=== PATIENT | female | born 1990 | race Caucasian/White ===

== ENCOUNTER 2017-08-18 19:05 | Emergency (ER) | payer SELFPAY ==
[~2017-08-18] VITALS: Ht 154.9 cm; Wt 54.5 kg
[2017-08-18] MEDS ORDERED: KETOROLAC TROMETHAMINE 30 MG/ML VIAL IVP ONE (20:15)
[2017-08-18] MEDS ORDERED: DiphenhydrAMINE HCL 50 MG/ML VIAL IVP ONE (20:15)
[2017-08-18] MEDS ORDERED: ONDANSETRON HCL 4 MG/2 ML VIAL IVP ONE (20:15)
[2017-08-18] MEDS ORDERED: SODIUM CHLORIDE 0.9% 1,000 ML IV ONE (20:15)
[2017-08-18 21:38] VITALS: BP 100/58
== END 2017-08-18 21:53 | disposition home or self-care (01) ==
LOC: EMS 19:07
DX: G43.909 Migraine, unspecified, not intractable, without status migrainosus (principal); F17.210 Nicotine dependence, cigarettes, uncomplicated
CPT/HCPCS: 96361; 96374; 96375; 99284; J1200; J1885; J2405; J7030

== ENCOUNTER 2017-09-03 16:53 | Emergency (ER) | payer SELFPAY ==
[~2017-09-03] VITALS: Ht 154.9 cm; Wt 56.8 kg
[2017-09-03] MEDS ORDERED: KETOROLAC TROMETHAMINE 30 MG/ML VIAL IM ONE (18:00)
[2017-09-03] MEDS ORDERED: ONDANSETRON HCL 4 MG TABLET PO ONE (18:00)
[2017-09-03 18:40] LABS: INFLUENZA TYPE A NEGATIVE FOR TYPE A (NEGATIVE); INFLUENZA TYPE B NEGATIVE FOR TYPE B (NEGATIVE)
[2017-09-03 19:24] VITALS: BP 108/67
== END 2017-09-03 19:28 | disposition home or self-care (01) ==
LOC: EMS 16:53
DX: J11.1 Influenza due to unidentified influenza virus with other respiratory manifestations (principal); F17.210 Nicotine dependence, cigarettes, uncomplicated
CPT/HCPCS: 87804; 96372; 99284; J1885; Q0162

== ENCOUNTER 2017-09-08 07:46 | Emergency (ER) | payer MEDICAID ==
[~2017-09-08] VITALS: Ht 165.1 cm; Wt 54.5 kg
[2017-09-08 09:42] LABS: GLUCOSE,POINT OF CARE 110 MG/DL (70-110)
[2017-09-08 10:03] LABS: APPEARANCE,URINE CLEAR (CLEAR); BILIRUBIN,URINE NEGATIVE (NEGATIVE); GLUCOSE, URINE (UA) NEGATIVE (NEGATIVE); KETONES,URINE NEGATIVE (NEGATIVE); LEUKOCYTE ESTERASE ,URINE NEGATIVE (NEGATIVE); NITRATE,URINE NEGATIVE (NEGATIVE); PH,URINE 5.5 (5.0-8.0); PROTEIN,URINE NEGATIVE (NEGATIVE); UROBILINOGEN,URINE 0.2 mg/dL (<=1.0)
[2017-09-08 10:21] LABS: OCCULT BLOOD,URINE TRACE (NEGATIVE)
[2017-09-08 10:22] LABS: BACTERIA,URINE None Seen /HPF (None Seen); RBC,URINE 0-2 /HPF (0-2); WBC,URINE None Seen /HPF (0-5)
[2017-09-08 10:26] LABS: HCG,QUAL RESULT NEGATIVE (NEGATIVE)
[2017-09-08 11:30] VITALS: BP 115/82
== END 2017-09-08 11:50 | disposition home or self-care (01) ==
LOC: EMS 07:50
DX: R42 Dizziness and giddiness (principal); G43.909 Migraine, unspecified, not intractable, without status migrainosus; R09.81 Nasal congestion; F17.210 Nicotine dependence, cigarettes, uncomplicated; I10 Essential (primary) hypertension; E11.9 Type 2 diabetes mellitus without complications; I25.10 Atherosclerotic heart disease of native coronary artery without angina pectoris
CPT/HCPCS: 82948; 82962; 93005; 99285